=== PATIENT | female | born 1995 | race Caucasian/White ===

== ENCOUNTER 2018-06-09 21:55 | Emergency (ER) | payer MEDICAID ==
[~2018-06-09] VITALS: Ht 154.9 cm; Wt 75.0 kg
[2018-06-10] MEDS ORDERED: IBUPROFEN 800MG TABLET PO ONE
[2018-06-10 02:01] VITALS: BP 120/68
== END 2018-06-10 02:05 | disposition home or self-care (01) ==
LOC: EDBD 21:55 → ER 21:55
DX: M25.562 Pain in left knee (principal); W17.89XA Other fall from one level to another, initial encounter; Y93.39 Activity, other involving climbing, rappelling and jumping off; Y92.89 Other specified places as the place of occurrence of the external cause
CPT/HCPCS: 73562; 81025; 99284